=== PATIENT | male | born 1960 | race Caucasian/White ===

== ENCOUNTER 2017-01-13 07:16 | Day surgery (SDC) | payer MEDICAID ==
[~2017-01-13] VITALS: Ht 177.8 cm; Wt 68.9 kg
[2017-01-13] MEDS ORDERED: LISINOPRIL (08:09)
[2017-01-13] MEDS ORDERED: IBUPROPHEN (08:09)
[2017-01-13] MEDS ORDERED: OMEPRAZOLE (08:09)
[2017-01-13 08:10] VITALS: Ht 177.8 cm; Wt 68.9 kg
[2017-01-13] MEDS ORDERED: LIDOCAINE 2% (SDV) 5 ML INJ ONE (08:32)
[2017-01-13] MEDS ORDERED: MIDAZOLAM 1 MG/ML 2 ML INJ ONE (08:32)
[2017-01-13] MEDS ORDERED: PROPOFOL 40 ML ONE (08:32)
[2017-01-13 08:38] VITALS: BP 157/94; PULSE 111; RESP 20
--- NOTE | 2017-01-13 09:12 | OPPN ---
Date/Time of Note Date/Time of Note DATE: 01/13/17 TIME: 09:10 Operative Report Preoperative Diagnosis Abdominal pain Weight loss Screening colonoscopy Postoperative Diagnosis Gastritis with erosions Polyp around appendiceal orifice Internal hemorrhoids Operation/Procedure Performed Esophagogastroduodenoscopy and biopsy Colonoscopy and biopsy Provider: POPPY WOODALL MD Anesthesia Type: MAC Estimated blood loss: none Transfusion Required: no Specimens Gastric mucosal biopsy Biopsy of polyp around the appendiceal orifice Grafts/Implants: none Complications: no POPPY WOODALL MD Jan 13, 2017 09:12
[2017-01-13 09:21] VITALS: BP 121/64; RESP 18
[2017-01-13] MEDS ORDERED: PHENYLephrine (100 MCG/ML) 5ML SYG ONE (10:25)
--- NOTE | 2017-01-13 10:28 | GILP ---
DATE OF PROCEDURE: PROCEDURE PERFORMED: 1. Esophagogastroduodenoscopy and biopsy. 2. Colonoscopy and biopsy. PREOPERATIVE: 1. Abdominal pain. 2. Weight loss. 3. Screening colonoscopy. POSTOPERATIVE DIAGNOSIS: 1. Reflux esophagitis. 2. Gastritis with erosions. 3. Gastric mucosal biopsies were taken for Helicobacter pylori test. 4. Colonoscopy all the way to the cecum. 5. Polyp around upper distal orifice and biopsies were taken for histopathology. 6. Internal hemorrhoids. INDICATION: Mr. Marciano Lugo is a 56-year-old male patient who had upper abdominal pain, loss of appetite and weight loss. He also needed a screening colonoscopy. The procedures and possible complications were well explained to the patient. He understood and consented to the procedure. DESCRIPTION OF PROCEDURE: Under the influence of anesthesia, the gastroscope was carefully introduced into the esophagus. Under direct vision, it was advanced to the stomach, into the pylorus, into the duodenal bulb, and descending duodenum. FINDINGS: Esophagus, the patient had reflux esophagitis. Stomach, he had gastritis with erosions. Gastric mucosal biopsies were taken for Helicobacter pylori test. Duodenum was normal. DESCRIPTION OF PROCEDURE: The colonoscope was carefully introduced in the rectum. Under direct vision, it was advanced all the way to the cecum. FINDINGS: The patient had a polypoid lesion around upper initial orifice and biopsies were taken for histopathology. He was noted to have internal hemorrhoids. He tolerated the procedures very well. There was no complication from the procedures. At the end of procedure, she was awake with stable vital signs and he was discharged home in the care of his family. IMPRESSION: Please see postoperative diagnoses. PLAN: 1. Continue omeprazole. 2. Add Zantac 300 mg p.o. q.h.s. 3. Await histopathology reports. 4. After reviewing the pathology report, the timing for the next colonoscopy will be decided. Dictated By: MD RUTH ANN Zazueta/andres/olivia /Document#: [id number]
--- NOTE | 2017-01-13 13:50 | CONS ---
DATE OF ADMISSION: 01/13/2017 DATE OF CONSULTATION: Dear Dr. Kaba: Thank you very much for this kind referral. He is a 56-year-old male patient who was referred to me for further evaluation of upper abdominal pain associated with weight loss. There is no past history of peptic ulcer disease. He has been taking omeprazole without relief. He takes ibuprofen for various pains. No history of gallstones or liver disease. The patient denies any change in the bowel habits or rectal bleeding. No past history of colon neoplasm. The patient never had a screening colonoscopy. He is hypertensive. Not a diabetic. No heart disease, lung problem, or kidney disease. Nonsmoker. Smokes marijuana. No history of alcohol abuse. No family history of gastrointestinal tract neoplasm. No drug allergies. MEDICATION: 1. Lisinopril. 2. Omeprazole. 3. Ibuprofen. PHYSICAL EXAMINATION: VITAL SIGNS: He is 5 feet 10 inches tall and weighs 148 pounds. HEART: Normal heart sounds. LUNGS: Clear. ABDOMEN: Soft. Liver is slightly enlarged. No other masses. Normal bowel sounds are heard. NEUROLOGIC: Normal neurological exam. IMPRESSION: 1. Upper abdominal pain and weight loss, not responding to therapy with omeprazole. The patient never had a screening colonoscopy. 2. Hypertension. 3. The patient is on ibuprofen. 4. He smokes marijuana. PLAN: Upper endoscopy and colonoscopy for further evaluation. Because of marijuana use, he will be resistant to narcotics and needs monitored anesthesia care. The procedures and possible complications were well explained to the patient. He understands and consents to the procedures. I thank you once again. With warmest personal regards, Dictated By: MD RUTH ANN Zazueta/andres/genny /Document#: [id number]
== END 2017-01-13 17:16 | disposition home or self-care (01) ==
LOC: GIL 07:16
PROVIDERS: ATTEND Internal Medicine Gastroenterology
DX: Z12.11 Encounter for screening for malignant neoplasm of colon (principal); K63.5 Polyp of colon; K21.0 Gastro-esophageal reflux disease with esophagitis; K64.8 Other hemorrhoids
CPT/HCPCS: 43239; 45380; 87081; 88305; J2250; J2370; Z7610